=== PATIENT | male | born 1990 | race Caucasian/White ===

== ENCOUNTER → 2018-05-12 | Emergency (ER) | payer OTHER ==
[~2018-05-12] VITALS: Ht 170.2 cm; Wt 65.8 kg
== END | disposition home or self-care (01) ==
LOC: ER 12:58
DX: T23.172A Burn of first degree of left wrist, initial encounter (principal); X11.8XXA Contact with other hot tap-water, initial encounter; Y93.89 Activity, other specified; Y92.89 Other specified places as the place of occurrence of the external cause; Y99.8 Other external cause status

== ENCOUNTER 2018-06-17 02:16 | Emergency (ER) | payer OTHER ==
[~2018-06-17] VITALS: Ht 170.2 cm; Wt 63.5 kg
[2018-06-17] MEDS ORDERED: KEFLEX500 MG PO (04:38)
== END 2018-06-17 04:58 | disposition home or self-care (01) ==
LOC: ER 02:16
DX: S01.411A Laceration without foreign body of right cheek and temporomandibular area, initial encounter (principal); W18.09XA Striking against other object with subsequent fall, initial encounter; Y93.89 Activity, other specified; Y92.89 Other specified places as the place of occurrence of the external cause; Y99.8 Other external cause status

== ENCOUNTER 2018-10-10 19:19 | Emergency (ER) | payer OTHER ==
[~2018-10-10] VITALS: Ht 170.2 cm; Wt 59.9 kg
[~2018-10-10 19:19] MED LIST: KEFLEX500 MG PO
[2018-10-10] MEDS ORDERED: ADDERALL 10 MG10 MG PO (19:30)
[2018-10-10] MEDS ORDERED: SKELAXIN800 MG PO (21:23)
[2018-10-10] MEDS ORDERED: MEDROLPACK PO (21:23)
== END 2018-10-10 21:26 | disposition home or self-care (01) ==
LOC: ER 19:19
DX: M54.89 Other dorsalgia (principal)

== ENCOUNTER 2019-02-16 11:19 | Emergency (ER) | payer OTHER ==
[~2019-02-16] VITALS: Ht 170.2 cm; Wt 65.8 kg
[~2019-02-16 11:19] MED LIST changes: +ADDERALL 10 MG10 MG PO; +MEDROLPACK PO; +SKELAXIN800 MG PO
[2019-02-16] MEDS ORDERED: MEDROLPACK PO (14:09)
[2019-02-16] MEDS ORDERED: SKELAXIN800 MG PO (14:09)
== END 2019-02-16 14:28 | disposition home or self-care (01) ==
LOC: ER 11:19
DX: M25.561 Pain in right knee (principal)